=== PATIENT | female | born 1950 | race Caucasian/White ===

== ENCOUNTER 2020-06-08 19:13 | Emergency (ER) | payer OTHER, MEDICAID ==
[~2020-06-08] VITALS: Ht 162.6 cm; Wt 69.9 kg
[2020-06-08] MEDS ORDERED: SODIUM CHLORIDE 0.9% 1,000 ML IVB ONE (20:00)
[2020-06-08] MEDS ORDERED: dilTIAZem 25 MG/5 ML VIAL IV ONE (20:15)
[2020-06-08 20:59] LABS: Basophils # (auto) 0 10 ^3/uL (0-0.2); Basophils % (auto) 0.4 % (0.0-2.0); Eosinophils # (auto) 0.2 10 ^3/uL (0-0.8); Eosinophils % (auto) 4.3 % (0.0-7.0); Hematocrit 40.2 % (36.0-46.0); Hemoglobin 13.2 g/dL (12.2-16.2); Lymphocytes # (auto) 1.3 10 ^3/uL (0.4-5.4); Lymphocytes % (auto) 22.3 % (10.0-50.0); Mean Corpuscular Hgb Conc. 32.9 g/dL (32.0-36.0); Mean Corpuscular Volume 100.4 fL (80.0-100.0); Monocytes # (auto) 0.4 10 ^3/uL (0-1.3); Monocytes % (auto) 6.6 % (0.0-12.0); Neutrophils # (auto) 3.9 10 ^3/uL (1.6-8.6); Neutrophils % (auto) 66.4 % (37.0-80.0); Nucleated Red Blood Cells % 0.2 %; Platelet Count (auto) 158 10^3/uL (140-450); Red Cell Distribution Width 13.3 % (11.8-14.3); White Blood Cell 5.9 10^3/uL (4.4-10.8)
[2020-06-08 21:16] LABS: Acetaminophen 6.4 ug/mL (10-30); Alanine Aminotransferase 24 U/L (13-56); Anion Gap 8 (5-15); Aspartate Aminotransferase 44 U/L (15-37); BUN/Creatinine Ratio 35.3; Blood Alcohol < 3.0 mg/dL (0-5); Blood Urea Nitrogen 24 mg/dL (7-18); Calcium 9.5 mg/dL (8.5-10.1); Carbon Dioxide 26 mmol/L (21-32); Chloride 109 mmol/L (98-107); GFR African American 111 mL/min; GFR Non-African American 92 mL/min; Glucose 57 mg/dL (74-106); Magnesium 1.8 mg/dL (1.6-2.6); Potassium 3.4 mmol/L (3.5-5.1); Sodium 143 mmol/L (136-145)
[2020-06-08 21:19] LABS: Alkaline Phosphatase 46 U/L (45-117); Bilirubin, Total 0.5 mg/dL (0.2-1.0); Total Protein 7.4 g/dL (6.4-8.2)
[2020-06-08] MEDS ORDERED: DEXTROSE (50%) 50ML SYRG IV ONE ×2 (22:00→22:15)
[2020-06-08] MEDS ORDERED: ACCU-CHEK COMFORT CURVE STRIP VI ONE ×2 (22:00→22:15)
[2020-06-08] MEDS ORDERED: AMIODARONE HCL 150 MG in D5W 5% 100 ML IV ONE (23:00)
[2020-06-08] MEDS ORDERED: AMIODARONE HCL (50 MG/ ML) 3 ML VIAL IV ONE (23:03)
[2020-06-08 23:04] LABS: Urine Bacteria NONE SEEN /hpf (None Seen); Urine Blood Negative /uL (Negative); Urine Hyaline Cast FEW /lpf (0 - 2); Urine Mucus FEW (None Seen); Urine Specific Gravity 1.028 (1.001-1.035); Urine WBC 1 /hpf (0 - 5)
[2020-06-08 23:16] LABS: Alcohol, Urine < 3.0 mg/dL (0-10); Amphetamine Screen, Urine NEGATIVE (NEGATIVE); Barbiturate Scree,Urine NEGATIVE (NEGATIVE); Benzodiazephine Screen, Urine NEGATIVE (NEGATIVE); Cannabinoid Screen, Urine NEGATIVE (NEGATIVE); Cocaine Screen, Urine NEGATIVE (NEGATIVE); Opiate Scree,Urine POSITIVE (NEGATIVE); Phencyclidine Screen, Urine NEGATIVE (NEGATIVE)
[2020-06-09] MEDS ORDERED: dilTIAZem 125mg/125ml BAG KIT 125 ML IV ONE (01:45)
[2020-06-09] MEDS ORDERED: LORazepam 2MG/ML-1ML VIAL IV ONE (02:00)
[2020-06-09] MEDS ORDERED: METOPROLOL SUCCINATE XL 50 MG TAB PO ONE (05:15)
[2020-06-09] MEDS ORDERED: dilTIAZem 120MG ER CAP PO ONE (05:15)
[2020-06-09] MEDS ORDERED: BUPR300T28 PO (07:54)
[2020-06-09] MEDS ORDERED: MORP1TAB12 PO (07:54)
[2020-06-09] MEDS ORDERED: OMEP-260 PO (07:54)
[2020-06-09] MEDS ORDERED: PRAV20TA3 PO (07:54)
[2020-06-09] MEDS ORDERED: HYDR-4072 PO (07:54)
[2020-06-09] MEDS ORDERED: MET50T PO (07:54)
[2020-06-09] MEDS ORDERED: VENL150C58 PO (07:54)
[2020-06-09] MEDS ORDERED: LISI2.5T47 PO (07:54)
[2020-06-09] MEDS ORDERED: DILT120C44 PO (07:54)
[2020-06-09 09:00] LABS: Albumin 3.1 g/dL (3.4-5.0); BUN/Creatinine Ratio 45.5; Calcium 8.4 mg/dL (8.5-10.1); Potassium 3.4 mmol/L (3.5-5.1)
[2020-06-09 09:03] LABS: Bilirubin, Total 0.6 mg/dL (0.2-1.0); Total Protein 6.1 g/dL (6.4-8.2)
[2020-06-09 10:47] VITALS: BP 105/67
== END 2020-06-09 11:05 | disposition short-term general hospital (02) ==
LOC: EDBD 19:13 → ER 19:19
DX: T40.602A Poisoning by unspecified narcotics, intentional self-harm, initial encounter (principal); I48.20 Chronic atrial fibrillation, unspecified; E16.2 Hypoglycemia, unspecified; F32.9 Major depressive disorder, single episode, unspecified; F41.9 Anxiety disorder, unspecified; Y92.89 Other specified places as the place of occurrence of the external cause
CPT/HCPCS: 36415; 71045; 80053; 80307; 80320; 80329; 81001; 82962; 83735; 85025; 87426; 96361; 96365; 96366; 96375; 99285; J0282; J2060; J7042; J7060

== ENCOUNTER 2022-05-21 02:39 | Emergency (ER) | payer OTHER, MEDICAID ==
[~2022-05-21] VITALS: Ht 167.6 cm; Wt 181.4 kg
[~2022-05-21 02:39] MED LIST: BUPR300T28 PO; DILT120C44 PO; HYDR-4072 PO; LISI2.5T47 PO; MET50T PO; MORP1TAB12 PO; OMEP-260 PO; PRAV20TA3 PO; VENL150C58 PO
[2022-05-21 03:44] LABS: Basophils # (auto) 0 10 ^3/uL (0-0.2); Basophils % (auto) 0.3 % (0.0-2.0); Eosinophils # (auto) 0.1 10 ^3/uL (0-0.8); Eosinophils % (auto) 1.5 % (0.0-7.0); Hematocrit 34.8 % (36.0-46.0); Hemoglobin 11.2 g/dL (12.2-16.2); Lymphocytes # (auto) 0.4 10 ^3/uL (0.4-5.4); Lymphocytes % (auto) 4.3 % (10.0-50.0); Mean Corpuscular Hemoglobin 30.5 pg (28.0-32.0); Mean Corpuscular Hgb Conc. 32.1 g/dL (32.0-36.0); Mean Corpuscular Volume 94.9 fL (80.0-100.0); Monocytes # (auto) 0.4 10 ^3/uL (0-1.3); Monocytes % (auto) 4.1 % (0.0-12.0); Neutrophils # (auto) 8.2 10 ^3/uL (1.6-8.6); Neutrophils % (auto) 89.8 % (37.0-80.0); Nucleated Red Blood Cells % 0.1 %; Red Blood Cells 3.67 10^6/uL (4.0-5.20); Red Cell Distribution Width 14.8 % (11.8-14.3); White Blood Cell 9.1 10^3/uL (4.4-10.8)
[2022-05-21 04:04] LABS: Albumin 3.6 g/dL (3.4-5.0); BUN/Creatinine Ratio 22.8; Calcium 8.9 mg/dL (8.5-10.1); Magnesium 1.6 mg/dL (1.6-2.6); Potassium 3.6 mmol/L (3.5-5.1)
[2022-05-21 04:07] LABS: Bilirubin, Total 0.6 mg/dL (0.2-1.0); Total Protein 8.1 g/dL (6.4-8.2)
[2022-05-21 04:35] LABS: INR 1.14 (0.9-1.15); Partial Thromboplastin Time 28.4 sec (24.6-33.4)
[2022-05-21] MEDS ORDERED: dilTIAZem 25 MG/5 ML VIAL IV ONE ×2 (05:15→10:45)
[2022-05-21] MEDS ORDERED: FUROSEMIDE 20 MG/2 ML VIAL IV ONE (06:45)
[2022-05-21] MEDS ORDERED: dilTIAZem 120MG ER CAP PO ONE (07:45)
[2022-05-21] MEDS ORDERED: METOPROLOL TARTRATE 1MG/1ML-5ML VIAL IV ONE (08:45)
[2022-05-21] MEDS ORDERED: SODIUM CHLORIDE 0.9% 1,000 ML IV ONE (11:00)
[2022-05-21] MEDS ORDERED: HYDROcodone-ACET 5/325MG TAB PO ONE (14:30)
[2022-05-21 20:00] VITALS: BP 108/65
== END 2022-05-21 14:02 | disposition home or self-care (01) ==
LOC: EDBD 02:39 → ER 02:41
DX: I48.20 Chronic atrial fibrillation, unspecified (principal); I11.0 Hypertensive heart disease with heart failure; I50.9 Heart failure, unspecified
CPT/HCPCS: 36415; 71045; 80053; 83735; 83880; 84484; 85025; 85610; 85730; 93005; 96361; 96374; 96375; 99285; J1940; J7030